=== PATIENT | female | born 2000 | race Caucasian/White ===

== ENCOUNTER 2023-04-15 20:41 | Emergency (ER) | payer OTHER, SELFPAY ==
[2023-04-15 20:50] VITALS: BP 109/71; PULSE 82; RESP 18; TEMP 36.7; O2SAT 98
--- NOTE | 2023-04-15 22:05 | ED.GENADULT ---
HPI - General Adult General Chief complaint: Vaginal Bleeding Stated complaint: 7 weeks prego, bleeding heavily Time Seen by Provider: 04/15/23 22:05 History of Present Illness HPI narrative: 7 week , bleeding started yesterday around 1200- 1400. light spotting, today soaking through and into toilet paper. mousy. Pt feeling light cramps. . No history of complications with those pregnancies. denies tissue/ clots coming out. 22-year-old woman presenting to the emergency department with concern of bleeding, spotting in early . By LMP of 02/22/2023 notes herself to be 7 weeks approximately. Has had virtual visits but nothing and personal ultrasound. Feeling crampy. Does endorse intercourse 3 days ago. No dysuria noted. No fever. Does have nausea. She is currently . Review of Systems Status of ROS: Reports: 6 or more systems reviewed and unremarkable except as noted in History and below PFSH PFS Social History Smoking Status: Never smoker How often do you have a drink containing alcohol: never AUDIT-C Alcohol total score: 0 Non-prescribed substance use: denies use Exam Narrative: Exam Narrative: Very pleasant. Carefully casually groomed here with partner/spouse. NAD. Skin is warm and dry. Breathing easily. Well-perfused peripherally without edema. Moving all extremities without difficulty. Heart in regular rate and rhythm without notable murmur rub or gallop. Lungs are clear. Abdomen is soft mom without particular tenderness. exam was not done. Const: Vital Signs, click to edit/add: Vital Signs - 24 hr 04/15/23 20:50 Temperature 98.1 F Pulse Rate [Pulse Oximeter] 82 Respiratory Rate 18 Blood Pressure [Ri ght Upper Arm] 109/71 Pulse Oximetry 98 Oxygen Delivery Me thod Room Air Documenting provider has reviewed patient's vital signs: yes Course Vital Signs Vital signs: Initial Vital Signs Temperature 98.1 F 04/15/23 20:50 Temperature Source Oral 04/15/23 20:50 Pulse Rate 82 04/15/23 20:50 Pulse Rhythm Regular 04/15/23 20:50 Pulse Strength 3+ Normal 04/15/23 20:50 Respiratory Rate 18 04/15/23 20:50 Blood Pressure 109/71 04/15/23 20:50 Blood Pressure Mean 83 04/15/23 20:50 Blood Pressure Position Sitting 04/15/23 20:50 Pulse Oximetry 98 04/15/23 20:50 Oxygen Delivery Method Room Air 04/15/23 20:50 Vital Signs Temperature 98.1 F 04/15/23 20:50 Pulse Rate 82 04/15/23 20:50 Respiratory Rate 18 04/15/23 20:50 Blood Pressure 109/71 04/15/23 20:50 Pulse Oximetry 98 04/15/23 20:50 Oxygen Delivery Method Room Air 04/15/23 20:50 Temperature 98.1 F 04/15/23 20:50 Pulse Rate 82 04/15/23 20:50 Respiratory Rate 18 04/15/23 20:50 Blood Pressure 109/71 04/15/23 20:50 Pulse Oximetry 98 04/15/23 20:50 Oxygen Delivery Method Room Air 04/15/23 20:50 Medical Decision Making MDM Narrative Medical decision making narrative: Does not have the degree of bleeding that I think will necessitate RhoGAM or blood typing. She believes her blood type to be A or O positive. At this suspect date would be prudent to verify location/intrauterine if ectopic is of concern. I wonder if this might simply be bleeding related to recent intercourse. Ultrasound was requested. Per their report looks to be 6 week and 1 day . Older blood was noted during exam. No source of bleeding specifically identified. This ultimately corresponded with radiology over-read. This changes formal date a little bit from LMP. Beta hCG was not collected today. Is anticipating follow-up in clinic in approximately 2 weeks Urinalysis only with blood See patient discharge plan Lab Data Lab results reviewed: Yes I reviewed the patient's lab results Labs: Lab Results 04/15/23 Range/Units 22:25 Urine Color Yellow (Yellow) Urine Appearance Clear (Clear) Urine pH 6.5 (5.0-8.5) Ur Specific [place] >= 1.030 (1.000-1.030) Urine Protein Negative (Negative) Urine Glucose (UA) Negative (Negative) Urine Ketones Negative (Negative) Urine Blood 3+ A (Negative) Urine Nitrite Negative (Negative) Urine Bilirubin Negative (Negative) Urine Urobilinogen 0.2 (0.2-1.0) Ur Leukocyte Esterase Negative (Negative) Urine RBC 0-2 (0-2) Urine WBC 2-5 (0-5) Ur Squamous Epith Cells Moderate A (None-Few) Urine Bacteria Few A (None) Discharge Plan Discharge Clinical Impression: Spotting during Patient Disposition: Home, Self-Care Condition: Stable Additional Instructions: 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 Return for marked increase in bleeding or persistent abdominal pain. I will call you if anything more of concern is noted in your ultrasound. Follow Up/Referrals: Provider,Not a Local [Primary Care Provider] - Stand Alone Forms: Shared [employer] Info Instructions
--- NOTE | 2023-04-15 22:16 | CRLHL7_ITS ---
For Patients: As a result of the Century Cures Act, medical imaging exams and procedure reports are released immediately into your electronic medical record. You may view this report before your referring provider. If you have questions, please contact your health care provider. INDICATION: Bleeding in early . LMP 02/22/2023. TECHNIQUE: Ultrasound OB pelvis transvaginal. Real-time fitzgerald-scale imaging of the pelvis was performed. COMPARISON: None FINDINGS: Sonographic imaging demonstrates a single living intrauterine gestation. The embryo demonstrates a regular cardiac rate measuring 104 beats per minute. The embryo`s crown rump length measurement of 0.5 cm corresponds to a gestational age of 6 weeks, 1 day with a sonographic due date of 12/08/2023. There is a normal appearing yolk sac. There are no gross abnormalities noted within the embryo at this early state of development. The placenta has not yet developed. There is no evidence of perigestational hemorrhage. Corpus luteum cyst noted within the right ovary. IMPRESSION: 1. Single viable intrauterine , with crown-rump length measurement of 0.5 cm which corresponds to a gestational age of 6 weeks, 1 day. This is discordant with dating by LMP, recommend correlation and trending of serum beta HCG. 2. Regular cardiac rate of 104 beats per minute. No subchorionic hemorrhage identified. Dictated by Juma Santiago MD @ 04/16/2023 1:44:01 AM (Electronically Signed)
[2023-04-15 22:55] LABS: Appearance Urine Clear (Clear); Bilirubin Urine Negative (Negative); Blood Urine 3+ (Negative); Color Urine Yellow (Yellow); Glucose Urine Negative (Negative); Ketones Urine Negative (Negative); Leukocyte Esterase Urine Negative (Negative); Nitrite Urine Negative (Negative); Protein Urine Negative (Negative); Specific Gravity Urine >= 1.030 (1.000-1.030); Urobilinogen Urine 0.2 (0.2-1.0); pH Urine 6.5 (5.0-8.5)
[2023-04-15 23:05] LABS: Bacteria Urine Few; RBC Urine 0-2 (0-2); Squamous Epithelial Cell Urine Moderate (None-Few)
== END 2023-04-15 23:54 | disposition home or self-care (01) ==
PROVIDERS: Emergency Provider Family Medicine
DX: O26.851 Spotting complicating pregnancy, first trimester (principal); Z3A.01 Less than 8 weeks gestation of pregnancy
CPT/HCPCS: 76817; 81001; 87086; 99283; 99284